=== PATIENT | female | born 1970 | race Caucasian/White ===

== ENCOUNTER 2018-05-14 14:27 | Emergency (ER) | payer SELFPAY ==
[~2018-05-14] VITALS: Ht 167.6 cm; Wt 76.7 kg
[2018-05-14 14:30] VITALS: BP 134/85
== END 2018-05-14 16:25 | disposition home or self-care (01) ==
LOC: ER 14:31
DX: R03.0 Elevated blood-pressure reading, without diagnosis of hypertension (principal); F41.9 Anxiety disorder, unspecified; E78.5 Hyperlipidemia, unspecified; Z86.73 Personal history of transient ischemic attack (TIA), and cerebral infarction without residual deficits
CPT/HCPCS: 99283; A4606